=== PATIENT | female | born 1955 | race Asian ===

== ENCOUNTER 2022-01-18 20:34 | Emergency (ER) | payer MEDICARE, OTHER ==
[2022-01-18] MEDS ORDERED: INSULIN REGULAR, HUMAN 100 UNIT/1 ML IV ONE (21:15)
[2022-01-18] MEDS ORDERED: CLONIDINE HCL 0.1 MG TAB PO ONE (21:15)
[2022-01-18] MEDS ORDERED: ASPIRIN 81 MG CHEW TAB PO ONE (21:30)
[2022-01-18] MEDS ORDERED: FAMOTIDINE 20 MG/2 ML VIAL IV ONE ×2 (21:30→21:52)
[2022-01-18] MEDS ORDERED: CLONIDINE HCL 0.1 MG TAB ONE (21:51)
[2022-01-18] MEDS ORDERED: ASPIRIN 81 MG CHEW TAB ONE (21:51)
[2022-01-18] MEDS ORDERED: INSULIN REGULAR, HUMAN 100 UNIT/1 ML ONE (21:52)
[2022-01-18] MEDS ORDERED: POTASSIUM CHLORIDE 10MEQ EA PO ONE (22:00)
[2022-01-18 22:34] VITALS: BP 185/84
== END 2022-01-18 22:34 | disposition home or self-care (01) ==
LOC: FSED 20:49
DX: I12.0 Hypertensive chronic kidney disease with stage 5 chronic kidney disease or end stage renal disease (principal); E11.22 Type 2 diabetes mellitus with diabetic chronic kidney disease; E11.65 Type 2 diabetes mellitus with hyperglycemia; N18.6 End stage renal disease; Z99.2 Dependence on renal dialysis
CPT/HCPCS: 71046; 80053; 82553; 84484; 85025; 93005; 96374; 96376; 99283; J1817